=== PATIENT | female | born 1955 | race Hispanic/Latino ===

== ENCOUNTER → 2019-03-06 | Outpatient (CLI) | payer OTHER ==
--- NOTE | 2019-03-06 12:59 | Diagnostic Imaging Report ---
Exam: Bone mineral density study. Indication: Osteoporosis screening. The patient history questionnaire was completed and is available on PACS. Comparison: None Discussion: Evaluation of the left hip and lumbar spine was performed utilizing a Hologic bone densitometer. The study is technically adequate. The patient's fracture risk is compared to an age-matched control. The patient denies prior surgery/fracture of the spine, hips or forearm. Left femoral neck bone mineral density: 0.620 g/cm2, T-score is -2.2, Z-score is -0.7. Left hip total bone mineral density: 0.657 g/cm2, T-score is -2.3, Z-score is -1.1. Lumbar spine total bone mineral density: 1.009 gm/cm2, T-score is -0.3, Z-score is 1.5. Impression: 1. Bone mineralization shows osteopenia. Fracture risk is moderate. 2. With a Z score of -1.1, the bone mineral density is low for someone of this age. 3. Calculated ten-year risk for major osteoporotic fracture 6.2%, hip fracture 1.0%. Recommendations: Medical evaluation for secondary causes of low bone mineral density may be appropriate. Correlate clinically for the necessity and timing of the next bone mineral density study. Staff: Adarsh Signed by: Dr. Stephen Altamirano M.D. on 03/06/2019 12:56 PM
== END ==
LOC: DX 09:44
PROVIDERS: ATTEND Internal Medicine
DX: M85.80 Other specified disorders of bone density and structure, unspecified site (principal)
CPT/HCPCS: 77080

== ENCOUNTER → 2019-05-28 | Outpatient (CLI) | payer MEDICARE, OTHER ==
--- NOTE | 2019-06-16 09:01 | Diagnostic Imaging Report ---
#[id number] - MGSCRBIL #BILATERAL DIGITAL SCREENING MAMMOGRAM WITH CAD: 05/28/2019 CLINICAL: Routine screening. Comparison is made to exam dated: 01/20/2013 mammogram - [facility]. Current study contains 5 films. The tissue of both breasts is predominantly fatty. Current study was also evaluated with a Computer Aided Detection (CAD) system. Benign appearing calcifications are noted bilaterally. There are benign vascular calcifications in both breasts. Left sided pacemaker is noted. No significant masses, calcifications, or other findings are seen in either breast. IMPRESSION: BENIGN There is no mammographic evidence of malignancy. A 1 year screening mammogram is recommended. The patient will be notified by letter of the results. SAMSON PACHECO M.D. ct/penrad:06/13/2019 08:21:48 Pneumatic Tube Repairer: Nevin DURON)(Violet), [facility] letter sent: Normal Exam Mammogram BI-RADS: 2 Benign
== END ==
LOC: MAMMO 07:36
PROVIDERS: ATTEND Internal Medicine
DX: Z12.31 Encounter for screening mammogram for malignant neoplasm of breast (principal)
CPT/HCPCS: 77067

== ENCOUNTER → 2019-09-02 | Outpatient (CLI) | payer MEDICARE, OTHER ==
--- NOTE | 2019-09-02 10:48 | Diagnostic Imaging Report ---
Exam: PA and lateral chest radiograph Clinical history: Shortness of breath Findings: Left lower lobe pulmonary opacities noted which may represent consolidation probably pneumonitis. Recommend clinical correlation. The cardiac size is within normal limits. A left subclavian ICD is noted. There is no evidence of pneumothorax. Mild widening of the left lateral pleural margin is noted which may represent small effusion. Regional osseous structures are unremarkable without gross evidence of acute displaced fractures. Impression: 1. Increased left basilar opacity which may represent pulmonary consolidation with small effusion. Signed by: Dr. Ahmet Olivia MD on 09/02/2019 10:45 AM
--- NOTE | 2019-09-02 11:04 | Diagnostic Imaging Report ---
Exam: Left rib series Clinical history: Status post fall with pain Findings: There is no evidence of acute displaced fracture in the visualized osseous structures. The patient is status post median sternotomy. Portions of the sternal wires are broken. A left subclavian transvenous pacemaker is also noted. The cardiac size is mildly prominent. Degenerative changes are noted throughout the thoracic spine. Left basilar pulmonary consolidation is again noted. Please refer to the chest radiograph today for further details. Impression: 1. No radiographic evidence of acute osseous injury. Signed by: Dr. Ahmet Olivia MD on 09/02/2019 11:01 AM
== END ==
LOC: RAD 09:47
PROVIDERS: ATTEND Internal Medicine
DX: S23.41XD Sprain of ribs, subsequent encounter (principal); R06.02 Shortness of breath
CPT/HCPCS: 71046; 71101

== ENCOUNTER → 2020-06-04 | Outpatient (CLI) | payer MEDICARE | LOC: MAMMO 10:40 | PROVIDERS: ATTEND Internal Medicine | DX: Z12.31 Encounter for screening mammogram for malignant neoplasm of breast (principal) | CPT/HCPCS: 77067 ==

== ENCOUNTER 2022-02-05 22:31 | Emergency (ER) | payer MEDICARE, MEDICAID ==
[~2022-02-05] VITALS: Ht 147.3 cm; Wt 59.0 kg
[2022-02-05] MEDS ORDERED: ULTRAM 50MG50 MG PO (22:58)
[2022-02-05] MEDS ORDERED: TRAMADOL HCL 50 MG TAB PO ONE (23:00)
[2022-02-05] MEDS ORDERED: TRAMADOL HCL 50 MG TAB ONE (23:16)
== END 2022-02-05 23:38 | disposition home or self-care (01) ==
LOC: ER 22:35
DX: M54.31 Sciatica, right side (principal); I12.9 Hypertensive chronic kidney disease with stage 1 through stage 4 chronic kidney disease, or unspecified chronic kidney disease; E11.22 Type 2 diabetes mellitus with diabetic chronic kidney disease; N18.9 Chronic kidney disease, unspecified; E78.5 Hyperlipidemia, unspecified; Z95.0 Presence of cardiac pacemaker
CPT/HCPCS: 99282

== ENCOUNTER 2022-04-06 17:41 | Inpatient (IN) | payer MEDICARE, MEDICAID ==
[~2022-04-06] VITALS: Ht 147.3 cm; Wt 65.4 kg
[~2022-04-06 17:41] MED LIST: ULTRAM 50MG50 MG PO
[2022-04-06 19:13] LABS: BASOPHILS % 0.7 % (0.0-1.0); EOSINOPHILS # (AUTO) 0.2 (0.0-0.4); EOSINOPHILS % 5.2 % (0.0-6.0); HEMATOCRIT 28.7 % (34.2-44.1); HEMOGLOBIN 9.7 g/dL (12.0-16.0); LYMPHOCYTES % 21.2 % (18.0-39.1); MEAN CORPUSCULAR HGB CONC 33.8 g/dL (31-35); MEAN CORPUSCULAR VOLUME 100.7 fL (81-99); MONOCYTES # (AUTO) 0.3 (0.2-0.8); MONOCYTES % 7.4 % (4.4-11.3); NEUTROPHILS % 65.1 % (38.7-80.0); PLATELET COUNT 205 x10e3/uL (140-360); RED BLOOD COUNT 2.85 x10e6/uL (3.6-5.1); RED CELL DISTRIBUTION WIDTH 14.6 % (11.7-14.4)
[2022-04-06 19:28] LABS: ANION GAP 16.8 mmol/L (8-16); CALCIUM 8.9 mg/dL (8.4-10.2); CREATININE, SERUM 2.08 mg/dL (0.57-1.11); POTASSIUM 4.8 mmol/L (3.5-5.1)
[2022-04-06 20:00] VITALS: BP 110/90
[2022-04-06] MEDS ORDERED: SODIUM CHLORIDE 0.9% 1000ML 500 ML IV ONE (20:00)
[2022-04-06] MEDS ORDERED: ONDANSETRON HCL INJ 2MG/ML 2ML 2 MG/ML VIAL IV PRN (20:00)
[2022-04-06] MEDS: SODIUM CHLORIDE 0.9% 1000ML 1,000 ML IV SCH (22:15)
[2022-04-06 23:00] VITALS: BP 110/90
[2022-04-06] MEDS ORDERED: FEROSUL325 MG PO (23:09)
[2022-04-06] MEDS ORDERED: FOLIC ACID0.4 MG PO (23:09)
[2022-04-06] MEDS ORDERED: CLOPIDOGREL75 MG PO (23:09)
[2022-04-06] MEDS ORDERED: GABAPENTIN100 MG PO (23:09)
[2022-04-06] MEDS ORDERED: STOOL SOFTENER100 MG PO (23:09)
[2022-04-06] MEDS ORDERED: FENOFIBRATE145 M1 PO (23:09)
[2022-04-06] MEDS ORDERED: FUROSEMIDE20 MG PO (23:09)
[2022-04-06] MEDS ORDERED: FARXIGA5 MG PO (23:09)
[2022-04-06] MEDS ORDERED: LISINOPRIL2.5 MG PO (23:09)
[2022-04-06 23:10] VITALS: BP 110/90
[2022-04-07] VITALS (8 sets, daily range): BP systolic 112–132; BP diastolic 65–74
[2022-04-07 05:25] LABS: ANION GAP 14.3 mmol/L (8-16); CALCIUM 8.3 mg/dL (8.4-10.2); CREATININE, SERUM 1.69 mg/dL (0.57-1.11); POTASSIUM 4.3 mmol/L (3.5-5.1)
[2022-04-07] MEDS: SODIUM CHLORIDE 0.9% 1000ML 1,000 ML IV SCH ×3 (05:50→22:00)
[2022-04-07] MEDS ORDERED: DEXTROSE 50% SYRINGE 50 ML IV PRN (10:00)
[2022-04-07] MEDS: INSULIN LISPRO 100 UNIT/1 ML 3ML VIAL SQ SCH ×3 (11:30→20:22)
[2022-04-07 15:20] LABS: CLARITY,URINE SL CLOUDY (CLEAR); COLOR,URINE YELLOW (YELLOW); KETONES,URINE NEGATIVE (NEGATIVE); LEUKOCYTE ESTERASE ,URINE MODERATE (NEGATIVE); NITRITE,URINE POSITIVE (NEGATIVE); PROTEIN,URINE DIPSTICK NEGATIVE (NEGATIVE); URINE UROBILINOGEN 0.2 mg/dL (0.2 - 1)
[2022-04-07 15:44] LABS: BACTERIA,URINE MANY /HPF
[2022-04-07 15:45] LABS: CREATININE,URINE RANDOM 15.55 mg/dL (47-110); TOTAL PROTEIN, URINE 7.7 mg/dL (1-14)
[2022-04-07] MEDS: GABAPENTIN 100 MG CAP PO SCH (21:14)
[2022-04-08] VITALS (8 sets, daily range): BP systolic 90–121; BP diastolic 46–75
[2022-04-08] MEDS: SODIUM CHLORIDE 0.9% 1000ML 1,000 ML IV SCH ×3 (05:16→21:18)
[2022-04-08 06:04] LABS: BASOPHILS % 0.3 % (0.0-1.0); EOSINOPHILS # (AUTO) 0.1 (0.0-0.4); EOSINOPHILS % 1.4 % (0.0-6.0); HEMATOCRIT 27.6 % (34.2-44.1); HEMOGLOBIN 9.1 g/dL (12.0-16.0); LYMPHOCYTES # (AUTO) 0.6 (1.0-3.2); LYMPHOCYTES % 9.7 % (18.0-39.1); MEAN CORPUSCULAR HEMOGLOBIN 34.2 pg (28-32); MEAN CORPUSCULAR VOLUME 103.8 fL (81-99); MONOCYTES # (AUTO) 0.3 (0.2-0.8); MONOCYTES % 4.2 % (4.4-11.3); NEUTROPHILS # (AUTO) 5.6 (2.1-6.9); NEUTROPHILS % 83.9 % (38.7-80.0); PLATELET COUNT 169 x10e3/uL (140-360); RED BLOOD COUNT 2.66 x10e6/uL (3.6-5.1); RED CELL DISTRIBUTION WIDTH 14.9 % (11.7-14.4)
[2022-04-08 06:55] LABS: ALBUMIN 3.1 g/dL (3.5-5.0); ALBUMIN/GLOBULIN RATIO 1.2 (0.8-2.0); CREATININE, SERUM 1.24 mg/dL (0.57-1.11)
[2022-04-08] MEDS: INSULIN LISPRO 100 UNIT/1 ML 3ML VIAL SQ SCH ×4 (07:30→20:24)
[2022-04-08] MEDS: Dapagliflozin Propanediol (Farxiga) 5 MG PO SCH (08:52)
[2022-04-08] MEDS: FOLIC ACID 1 MG TAB PO SCH (08:52)
[2022-04-08] MEDS: CLOPIDOGREL BISULFATE 75 MG TAB PO SCH (08:52)
[2022-04-08] MEDS: DOCUSATE SODIUM 100 MG CAP PO SCH (08:52)
[2022-04-08] MEDS ORDERED: FENOFIBRATE 145 MG TAB PO SCH (09:00)
[2022-04-08] MEDS: ALLOPURINOL 100 MG TAB PO SCH (12:29)
[2022-04-08 12:34] LABS: THYROID STIMULATING HORMONE 5.473 uIU/mL (0.350-4.940)
[2022-04-08] MEDS: SODIUM BICARBONATE 650 MG TAB PO SCH ×2 (16:43→21:18)
[2022-04-08] MEDS: GABAPENTIN 100 MG CAP PO SCH (21:18)
[2022-04-09 00:11] VITALS: BP 117/63
[2022-04-09 04:00] VITALS: BP 110/50
[2022-04-09 06:12] LABS: BASOPHILS % 0.2 % (0.0-1.0); EOSINOPHILS % 0.1 % (0.0-6.0); HEMATOCRIT 26.7 % (34.2-44.1); HEMOGLOBIN 8.7 g/dL (12.0-16.0); LYMPHOCYTES # (AUTO) 0.9 (1.0-3.2); LYMPHOCYTES % 10.5 % (18.0-39.1); MEAN CORPUSCULAR HGB CONC 32.6 g/dL (31-35); MEAN CORPUSCULAR VOLUME 104.3 fL (81-99); MONOCYTES # (AUTO) 0.4 (0.2-0.8); MONOCYTES % 4.9 % (4.4-11.3); NEUTROPHILS # (AUTO) 6.8 (2.1-6.9); NEUTROPHILS % 83.7 % (38.7-80.0); PLATELET COUNT 144 x10e3/uL (140-360); RED BLOOD COUNT 2.56 x10e6/uL (3.6-5.1); RED CELL DISTRIBUTION WIDTH 14.6 % (11.7-14.4)
[2022-04-09 06:53] LABS: ALBUMIN 3.2 g/dL (3.5-5.0); ALBUMIN/GLOBULIN RATIO 1.2 (0.8-2.0); ANION GAP 12.1 mmol/L (8-16); CALCIUM 8.4 mg/dL (8.4-10.2); CREATININE, SERUM 1.24 mg/dL (0.57-1.11); POTASSIUM 4.1 mmol/L (3.5-5.1)
[2022-04-09] MEDS ORDERED: FUROSEMIDE INJ 10 MG/ML 4 ML VIAL IV ONE (07:00)
[2022-04-09] MEDS: INSULIN LISPRO 100 UNIT/1 ML 3ML VIAL SQ SCH (07:14)
[2022-04-09 08:07] VITALS: BP 144/72
[2022-04-09] MEDS: CLOPIDOGREL BISULFATE 75 MG TAB PO SCH (08:58)
[2022-04-09] MEDS: FOLIC ACID 1 MG TAB PO SCH (08:58)
[2022-04-09] MEDS: DOCUSATE SODIUM 100 MG CAP PO SCH (08:58)
[2022-04-09] MEDS: Dapagliflozin Propanediol (Farxiga) 5 MG PO SCH (08:58)
[2022-04-09] MEDS: SODIUM BICARBONATE 650 MG TAB PO SCH (08:58)
[2022-04-09] MEDS: ALLOPURINOL 100 MG TAB PO SCH (08:58)
[2022-04-09 08:59] VITALS: BP 144/72
[2022-04-09] MEDS ORDERED: CYANOCOBALAMIN INJ 1,000 MCG/ML VIAL IM NR ×2 (09:15→10:45)
[2022-04-09] MEDS ORDERED: FUROSEMIDE INJ 10 MG/ML 2 ML VIAL IV NR (10:15)
== END 2022-04-09 11:24 | disposition home or self-care (01) | DRG 557 ==
LOC: ER 18:00 → ERHOLD 20:01 → MED/SURG2 21:47
PROVIDERS: ADMIT Internal Medicine; ATTEND Internal Medicine
DX: M62.82 Rhabdomyolysis (principal); N17.0 Acute kidney failure with tubular necrosis; I13.0 Hypertensive heart and chronic kidney disease with heart failure and stage 1 through stage 4 chronic kidney disease, or unspecified chronic kidney disease; E86.0 Dehydration; M10.9 Gout, unspecified; D63.8 Anemia in other chronic diseases classified elsewhere; E53.8 Deficiency of other specified B group vitamins; I25.10 Atherosclerotic heart disease of native coronary artery without angina pectoris; Z95.1 Presence of aortocoronary bypass graft; E11.22 Type 2 diabetes mellitus with diabetic chronic kidney disease; M19.90 Unspecified osteoarthritis, unspecified site; N18.32 Chronic kidney disease, stage 3b; I50.9 Heart failure, unspecified; Z95.810 Presence of automatic (implantable) cardiac defibrillator
CPT/HCPCS: 36415; 74176; 80048; 80053; 81001; 82550; 82570; 82607; 82746; 83540; 84156; 84443; 84466; 84550; 85025; 85651; 86039; 86431; 94799; 96361; 99284; J1940; J2405; J3420; J7030; U0002

== ENCOUNTER 2023-01-30 17:38 | Emergency (ER) | payer MEDICARE, OTHER ==
[~2023-01-30] VITALS: Ht 147.3 cm; Wt 65.3 kg
[~2023-01-30 17:38] MED LIST changes: +CLOPIDOGREL75 MG PO; +FARXIGA5 MG PO; +FENOFIBRATE145 M1 PO; +FEROSUL325 MG PO; +FOLIC ACID0.4 MG PO; +FUROSEMIDE20 MG PO; +GABAPENTIN100 MG PO; +LISINOPRIL2.5 MG PO; +MUCINEX DM ER1 EACH PO; +STOOL SOFTENER100 MG PO
[2023-01-30] MEDS ORDERED: METHOCARBAMOL 500 MG TAB PO ONE (18:15)
[2023-01-30] MEDS ORDERED: HYDROCODONE/APAP 5MG-325MG TAB PO ONE (18:15)
[2023-01-30] MEDS ORDERED: METHOCARBAMOL750 MG PO (19:43)
[2023-01-30 19:53] VITALS: BP 130/75
== END 2023-01-30 19:54 | disposition home or self-care (01) ==
LOC: ER 17:41
DX: M51.36 Other intervertebral disc degeneration, lumbar region (principal); I12.9 Hypertensive chronic kidney disease with stage 1 through stage 4 chronic kidney disease, or unspecified chronic kidney disease; E11.22 Type 2 diabetes mellitus with diabetic chronic kidney disease; N18.9 Chronic kidney disease, unspecified; E78.5 Hyperlipidemia, unspecified; I25.10 Atherosclerotic heart disease of native coronary artery without angina pectoris; Z95.810 Presence of automatic (implantable) cardiac defibrillator
CPT/HCPCS: 72110; 99283

== ENCOUNTER → 2024-12-24 | Outpatient (REF) | payer MEDICARE, MEDICAID ==
[~2024-12-24] MED LIST changes: +METHOCARBAMOL750 MG PO
== END ==
LOC: MAMMO 14:45
PROVIDERS: ATTEND Internal Medicine
DX: Z12.31 Encounter for screening mammogram for malignant neoplasm of breast (principal)
CPT/HCPCS: 77067

== ENCOUNTER → 2025-03-30 | Outpatient (REF) | payer MEDICARE, MEDICAID | LOC: DX 11:16 | PROVIDERS: ATTEND Internal Medicine | DX: M81.0 Age-related osteoporosis without current pathological fracture (principal) | CPT/HCPCS: 77080 ==

== ENCOUNTER → 2025-06-08 | Outpatient (REF) | payer MEDICARE | LOC: RAD 14:43 | PROVIDERS: ATTEND Internal Medicine | DX: M19.042 Primary osteoarthritis, left hand (principal); M19.041 Primary osteoarthritis, right hand ==

== ENCOUNTER → 2025-06-19 | Outpatient (REF) | payer MEDICARE | LOC: US 07:55 | PROVIDERS: ATTEND Internal Medicine Medical Oncology | DX: K76.0 Fatty (change of) liver, not elsewhere classified (principal) | CPT/HCPCS: 76700 ==